=== PATIENT | male | born 1985 | race Caucasian/White ===

== ENCOUNTER 2024-10-13 08:18 | Emergency (ER) | payer SELFPAY ==
[2024-10-13 08:22] VITALS: BP 123/77; PULSE 66; TEMP 36.2; O2SAT 96
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
--- NOTE | 2024-10-13 08:50 | DI.CT_ITS ---
Exam(s) CT HEAD WO EXAM: CT HEAD WO CLINICAL HISTORY: Head injury. TECHNIQUE: Imaging Protocol: Axial computed tomography images with coronal and sagittal reformatted images were created and reviewed COMPARISON: No exams were available for comparison FINDINGS: There is hematoma over the right forehead. There are no skull fractures. There is no fluid in the vi sualized paranasal sinuses. There is no evidence of intracranial hemorrhage, mass effect, or shift of midline structures. There are no extra-axial fluid collections. The ventricles are not enlarged or shifted and there is no blo od within the ventricular system nor within the basal cisterns. IMPRESSION: No acute intracranial findings on this noninfused CT scan of the brain. Right forehead hematoma. RADIATION DOSE DELIVERED: 853.57mGy.cm Total DLP DATA REPOSITORY: All CT scans at this facility are submitted to the National Radiology Data Registry (NRDR) Dose Index Registry (DIR) with the [employer] (A[employer]). RADIATION OPTIMIZATION: All CT scans at this facility use at least one of these dose optimization te chniques: automated exposure control; mA and/or kV adjustment per patient size (includes targeted exa ms where dose is matched to clinical indication); or iterative reconstruction.
[2024-10-13] MEDS: Acetaminophen 500 MG TAB 1000 MG PO (08:52)
[2024-10-13] MEDS: Ondansetron O.D.T. 4 MG TABEF PO (08:52)
--- NOTE | 2024-10-13 08:59 | DI.VRAD_ITS ---
PROCEDURE INFORMATION: Exam: CT Head Without Contrast Exam date and time: 10/13/2024 8:45 AM Age: 39 years old Clinical indication: Injury or trauma; Other: Patient not able to tell US what happened; Other: Unknown injury TECHNIQUE: Imaging protocol: Computed tomography of the head without contrast. COMPARISON: No relevant prior studies available. FINDINGS: Brain: Normal. No hemorrhage. Unremarkable white matter. No mass effect. Cerebral ventricles: No ventriculomegaly. Paranasal sinuses: Visualized sinuses are unremarkable. No fluid levels. Mastoid air cells: Visualized mastoid air cells are well aerated. Bones: Unremarkable. No acute fracture. Soft tissues: There is a right forehead subgaleal hematoma. IMPRESSION: No acute intracranial posttraumatic changes. Dictated and Authenticated by: Robe Felipe MD. Ordering:ARNALDO Moore MD
== END 2024-10-13 09:15 | disposition home or self-care (01) ==
LOC: ER 09:15
PROVIDERS: Emergency Provider Registered Nurse Emergency
DX: S06.0X0A Concussion without loss of consciousness, initial encounter (principal); W20.8XXA Other cause of strike by thrown, projected or falling object, initial encounter; Y93.89 Activity, other specified; Y92.89 Other specified places as the place of occurrence of the external cause
CPT/HCPCS: 99284; 70450